=== PATIENT | female | born 1955 | race Caucasian/White ===

== ENCOUNTER → 2016-09-15 | Outpatient (CLI) | payer OTHER ==
[~2016-09-15] MED LIST: ALLE24TA8 PO; ASCO25TA PO; CALC600T57 PO; FISH1000 PO; FLUT1LOT EX; MULT1TAB18 PO; PRED20TA PO; VITA100072 PO; VITA500055 PO
[2016-09-15 12:17] LABS: MEAN CORPUSCULAR HEMOGLOBIN 28.4 pg (27.0-33.0); MEAN CORPUSCULAR HGB CONC 33.3 g/dl (32.0-36.5); MEAN CORPUSCULAR VOLUME 85.4 fl (80.0-96.0); RED CELL DISTRIBUTION WIDTH 14.3 % (11.5-14.5); WHITE BLOOD COUNT 11.2 K/mm3 (4.0-10.0)
[2016-09-15 12:22] LABS: INR 1.01
[2016-09-15 12:30] LABS: ALBUMIN/GLOBULIN RATIO 1.18 (1.00-1.93); ALKALINE PHOSPHATASE 87 U/L (45-117); ALT/SGPT 25 U/L (12-78); ANION GAP 6 MEQ/L (8-16); AST/SGOT 15 U/L (15-37); BILIRUBIN,TOTAL 0.3 MG/DL (0.2-1.0); BLOOD UREA NITROGEN 15 MG/DL (7-18); CALCIUM LEVEL 9.5 MG/DL (8.5-10.1); CARBON DIOXIDE LEVEL 29 MEQ/L (21-32); CHLORIDE LEVEL 103 MEQ/L (98-107); CREATININE FOR GFR 0.82 MG/DL (0.55-1.02); GLOMERULAR FILTRATION RATE > 60.0 (>51); GLUCOSE, FASTING 111 MG/DL (70-105); POTASSIUM SERUM 4.7 MEQ/L (3.5-5.1); SODIUM LEVEL 138 MEQ/L (136-145); TOTAL PROTEIN 7.4 GM/DL (6.4-8.2)
--- NOTE | 2016-09-15 12:38 | REP ---
Clinical: Preoperative assessment. Anesthesia protocol . Comparison: 09/08/2007 . Technique: PA and lateral. Findings: The mediastinum and cardiac silhouette are normal. Airway is patent and midline. The lung greenwood are clear and without acute consolidation, effusion, or pneumothorax. The skeletal structures are intact and normal. Impression: 1. No acute cardiopulmonary process. Signed by Aaron Gloria MD 09/15/2016 12:29 P
--- NOTE | 2016-09-15 22:19 | ECGEPIP ---
Stationary ECG Study [facility] Test Date: 2016-09-15 Pat Name: SHAMIKA LOTT Department: Room: - Gender: F Marine Technician: ADRI : 1955 Requested By: Jolynn Bettencourt Order Number: [id number] Reading MD: Danielle Velásquez Measurements Intervals [place] Rate: 63 P: 32 IL: 183 QRS: 71 QRSD: 94 T: 45 QT: 414 QTc: 425 Interpretive Statements SINUS RHYTHM NO PRIOR Electronically Signed On 09-15-2016 22:19:32 EDT by Danielle Velásquez
== END ==
LOC: M ADMPAT 09:10
PROVIDERS: ATTEND Orthopaedic Surgery
DX: M17.12 Unilateral primary osteoarthritis, left knee (principal)

== ENCOUNTER 2016-09-22 07:30 | Inpatient (IN) | payer OTHER ==
--- NOTE | 2016-09-17 16:54 | HPE ---
DATE OF ADMISSION: 09/22/2016 CHIEF COMPLAINT: Left knee pain. HISTORY OF PRESENT ILLNESS: This a pleasant 61-year-old woman with progressively worsening left knee pain and stiffness. She has failed to improve with conservative treatment. She has elected for surgery for her continued symptoms. She has pain with weightbearing activities and her activities of daily living. X-rays of her knee are notable for advanced osteoarthritis of the left knee joint. She has consented for a left total knee arthroplasty by Dr. Sg Huynh. Medical optimization was performed by Dr. Jones. ALLERGIES: SULFA, CODEINE, and PENICILLIN. CURRENT MEDICATIONS: - fish oil and omega-3 combination 1400 mg and 900 mg respectively once a day - vitamin D3 5000 units IV - calcium 600 mg and vitamin D3 800 mg - multivitamin once a day - Carito-D 24 Hour once a day - vitamin B12 5000 mcg once a week - vitamin C 500 mg daily - fluticasone 50 mcg spray in each nostril twice a day - saline nasal spray PAST MEDICAL HISTORY: Includes: 1. Seasonal allergies. 2. Arthritis of the knees. PAST SURGICAL HISTORY: Includes: 1. Bladder suspension. 2. Right bunionectomy. 3. Right carpal tunnel release. 4. Right knee arthroscopy. 5. Breast reduction. 6. Multiple left hand and wrist surgeries for lacerated tendons when she was 7 years old. 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 She does not smoke. She rarely drinks alcohol. FAMILY HISTORY: Noncontributory. REVIEW OF SYSTEMS: This patient denies chest pain, heart palpitations, cough, wheezing, difficulty breathing, and shortness of breath. She denies abdominal pain, nausea, vomiting, diarrhea, or constipation. She denies recent upper respiratory infection or urinary tract infection symptoms. She does complain of persistent pain in her left knee and pain with weightbearing activities in her left knee. PHYSICAL EXAMINATION: GENERAL: She is a well-nourished, well-developed, in no acute distress, alert female patient. She walks with a moderate limp, favoring her left lower extremity. She is not using assistive devices. VITAL SIGNS: She is 69-1/2 inches tall, weighs 234 pounds with a temperature of 97.3, pulse of 68, blood pressure 122/78, and respirations of 20. NECK: Supple without adenopathy or jugular venous distension. There were no carotid bruits appreciated upon auscultation. LUNGS: Clear to auscultation without rales or wheeze throughout. HEART: Regular rate and rhythm. ABDOMEN: Bowel sounds were present. EXTREMITIES: Examination of the knee revealed intact skin without erythema, edema, or ecchymosis. She had pain and stiffness and decreased range of motion through her knee today. It was neurovascularly intact. LABORATORY DATA: EKG showed sinus rhythm at 63 beats per minute. Chest x-ray showed no acute cardiopulmonary disease processes. Nasal and sinus cultures showed normal raciel. Prothrombin time 13.4, INR 1.01. Glucose 111, BUN 15, creatinine 0.82, sodium 138, potassium 4.7. CBC showed a white count of 11.2, otherwise within normal limits with a sedimentation rate of 12. UA showed 2+ leukocyte esterase, otherwise within normal limits with specific gravity of 1.012. Urine culture showed no growth. IMPRESSION: Symptomatic osteoarthritis of the left knee joint. PLAN: Consented for a left total knee arthroplasty by Dr. Sg Huynh.
--- NOTE | 2016-09-17 21:34 | CR ---
DATE OF CONSULTATION: 09/17/2016 CONSULTATION REPORT FOR: Dr. Sg Huynh REASON FOR CONSULTATION: Total left total knee arthroplasty (TKA). Dear Dr. Huynh, Than you for asking me to see Ms. Heath Thompson in consultation prior to her left total knee arthroplasty (TKC). As you know, Ms. Thompson is a relatively healthy 61-year-old female with a past medical history of hyperlipidemia, vitamin D deficiency, and allergic rhinitis. The patient reports she has been in her usual state of health except for recent vision changing ultimately felt to be related to an optical migraine from her plater hot dip and treated with prednisone 20 mg a day for 10 days which has just resolved with near full resolution of the patient's symptoms. The patient has had this condition previously which did respond to prednisone. The patient denies any fevers or chills, chest pain or shortness of breath. She denies any significant adverse reactions from the prednisone, except enjoyed the increased energy. The patient is [id number]. She does wear hearing aids. She has tubes in her ears which were placed about a year ago and she follows with the ears, nose and throat (ENT). The patient has allergic rhinitis. She believes the warm spell we had in July 2016 flared her allergies which cause headaches and triggered the optical migraine. The patient does have osteoarthritis (OA), degenerative joint disease (DJD). She was an athlete in high school, played four sports and has chronic knee pain. She has been waiting for left TKA for some time, as it is difficult for her to even walk in the mall. She is able to do her own housework with no chest pain, palpitations, syncope or presyncope. The patient otherwise has a negative review of systems. PAST MEDICAL HISTORY: 1. Osteoarthritis (OA), degenerative joint disease (DJD), bilateral knees. 2. Seasonal allergies. 3. (G) 3, para (P) 3. 4. Bladder suspension. 5. Hyperlipidemia. 6. Right carpal tunnel repair. 7. Colonic polyps. 8. Vitamin D deficiency. 9. Bilateral breast reduction. 10. Dilation and curettage and laparoscopic cystectomy by Dr. Linares. 11. Obstructive sleep apnea (KEVON), compliant with continuous positive airway pressure (CPAP). 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 MEDICATIONS: - vitamin D3 5000 international units daily - calcium 600 with vitamin D3 800 one daily - vitamin C 500 daily - fluticasone one spray per nostril twice a day - vitamin B12 5000 mcg daily - fexofenadine with pseudoephedrine daily - fish oil daily - multivitamin daily DRUG ALLERGIES: SULFA and CODEINE, PENICILLIN does cause yeast infections. SOCIAL HISTORY: Adult children. Still works in the school system. FAMILY HISTORY: Father with heart disease and lung problems. Mother with kidney cancer and Alzheimer's. A sibling has diabetes. Another sibling hypertension. A sibling has psoriasis. PHYSICAL EXAMINATION: No acute distress. VITAL SIGNS: Weight 238 with a body mass index (BMI) of 34. Oxygen saturation is 97%, blood pressure 108/60 with a heart rate of 70. HEENT: Head is normocephalic. Neck is supple. She wears hearing aids which are removed. She has tubes bilateral ears. No significant erythema or drainage. No cervical lymphadenopathy, thyromegaly. Oropharynx is benign. No carotid bruits. RESPIRATORY: Clear to auscultation, resonant to percussion. CARDIOVASCULAR SYSTEM: Early soft systolic murmur with no radiation. ABDOMEN: Normoactive bowel sounds, soft, nontender. No hepatosplenomegaly. EXTREMITIES: No cyanosis, clubbing or edema but some early arthritic changes. DERMATOLOGIC: No rashes. NEUROLOGIC: Alert and oriented. Cranial nerves II-XII are intact. LABORATORY DATA: 09/15/2016 UA consistent with contamination, negative urine culture. PT/PTT is normal. Metabolic profile normal. Liver panel normal. CBC significant for white count of 11 but when this was drawn she was on prednisone. Her sedimentation rate is only 12. Nasal culture is negative. Chest x-ray within normal limits. EKG within normal limits. IMPRESSION: Ms. Hetah Thompson is a 61-year-old female with cardiovascular risk factors positive for hyperlipidemia and age, has no signs or symptoms indicative of cardiovascular ischemia and is felt to be at low risk for cardiovascular complications from the proposed surgical intervention which can be further minimized by the followin. Hyperlipidemia. Stop fish oral now, resume after off warfarin. Patient encouraged to resume diet and exercise as soon as she can. 2. Vitamin D deficiency. Hold vitamin D and calcium now until surgery, resume following surgery. 3. Allergic rhinitis. I have approved her taking saline and Flonase perioperatively. She will take the Carito-D until the morning of surgery. 4. Obstructive sleep apnea (KEVON). Bring continuous positive airway pressure (CPAP) to surgery. The patient is compliant. 5. Recent optical migraines. Full near resolution, off prednisone. No further treatment indicated. Will follow up with her plater hot dip. 6. Colonic polyps. Up-to-date with colonoscopy. Thank you very much for this consultation. Please call with questions or concerns. Dr. Briseida Jones
[~2016-09-22] VITALS: Ht 177.8 cm; Wt 104.3 kg
[2016-09-22] MEDS ORDERED: BUPIVACAINE HCL 0.5% 10 ML VIAL As Ordered ONE (07:34)
[2016-09-22] MEDS ORDERED: EPINEPHrine INJ 1 MG/ML 1ML VIAL/AMP As Ordered ONE (07:34)
[2016-09-22] MEDS ORDERED: ROPIvacaine 0.5% 30 ML INJECTION (J2795) As Ordered ONE (07:34)
[2016-09-22] MEDS ORDERED: TRANEXAMIC ACID 100 MG/ML 10ML VIAL As Ordered ONE (07:34)
[2016-09-22] MEDS ORDERED: LR 1,000 ML IV SCH ×4 (10:00→15:00)
[2016-09-22] MEDS ORDERED: ceFAZolin 1GM INJ (J0690) As Ordered ONE (10:20)
[2016-09-22] MEDS ORDERED: COUM1TAB17 PO (10:24)
[2016-09-22] MEDS ORDERED: ACETAMINOPHEN 500 MG TAB PO ONE (10:30)
[2016-09-22] MEDS ORDERED: fentaNYL 100 MCG/2 ML INJECTION (J3010) As Ordered ONE ×3 (10:58→12:55)
[2016-09-22] MEDS ORDERED: MIDAZOLAM INJ 2 MG/2 ML VIAL (J2250) As Ordered ONE ×2 (10:59→11:10)
[2016-09-22] MEDS ORDERED: PROPOFOL 200 MG/20 ML VIAL As Ordered ONE (10:59)
[2016-09-22] MEDS ORDERED: LIDOCAINE 2% INJ 100 MG/5 ML SDV (FOR ANES.) As Ordered ONE (10:59)
[2016-09-22] MEDS ORDERED: ONDANSETRON 4MG/2ML VIAL (J2405) As Ordered ONE ×2 (11:07→14:51)
[2016-09-22] MEDS: fentaNYL 100 MCG/2 ML INJECTION (J3010) IV SCH ×2 (11:58→12:04)
[2016-09-22] MEDS: MIDAZOLAM INJ 2 MG/2 ML VIAL (J2250) IV SCH ×2 (11:58→12:04)
[2016-09-22] MEDS ORDERED: MORPHINE PCA 1MG/ML 100ML CADD As Ordered ONE (14:51)
[2016-09-22] MEDS ORDERED: PATIENT IS CURRENTLY ON AN ON-Q PAIN BUSTER PAIN RELIEF SYSTEM XX SCH (15:00)
[2016-09-22] MEDS ORDERED: NALBUPHINE HCL 10 MG/ML AMP (J2300) IV PRN (15:00)
[2016-09-22] MEDS ORDERED: NALOXONE INJ 0.4 MG/1 ML VIAL (J2310) IV PRN (15:00)
[2016-09-22] MEDS ORDERED: ONDANSETRON 4MG/2ML VIAL (J2405) IV PRN (15:00)
[2016-09-22] MEDS ORDERED: EPIDURAL/PCA KEYS XX PRN (15:00)
[2016-09-22] MEDS ORDERED: HYDROmorphone HCL 1 MG/ML SYRINGE (J1170) IV PRN (15:00)
[2016-09-22] MEDS ORDERED: MORPHINE PCA 1MG/ML 100ML CADD IV PRN (15:00)
[2016-09-22] MEDS ORDERED: diphenhydrAMINE INJ 50MG/ML VIAL (J1200) IV PRN (15:00)
[2016-09-22] MEDS ORDERED: PERCOCET 5MG/325MG TAB PO PRN (15:00)
[2016-09-22] MEDS ORDERED: FLEET ENEMA PR PRN (15:00)
[2016-09-22] MEDS: fentaNYL 100 MCG/2 ML INJECTION (J3010) IV PRN ×4 (15:10→15:25)
[2016-09-22] MEDS ORDERED: METOCLOPRAMIDE INJ 10MG/2ML VIAL (J2765) As Ordered ONE (15:39)
[2016-09-22] MEDS ORDERED: METOCLOPRAMIDE INJ 10MG/2ML VIAL (J2765) IV PRN (15:45)
[2016-09-22 16:15] VITALS: BP 135/73
[2016-09-22 16:45] VITALS: BP 130/60
[2016-09-22] MEDS ORDERED: WARFARIN SOD 5 MG TAB PO SCH (17:00)
--- NOTE | 2016-09-22 17:24 | RO ---
DATE OF PROCEDURE: 09/22/2016 PREOPERATIVE DIAGNOSIS: Left knee degenerative arthritis. POSTOPERATIVE DIAGNOSIS: Left knee degenerative arthritis. PROCEDURE: Left total knee arthroplasty using a size 5 cruciate-retaining femoral component, a size 4 tibial tray with a 12.5 mm rotating platform polyethylene insert and a 35 mm polyethylene button. All components were cemented. The prosthesis was made by [employer]. It was a PFC knee. SURGEON: Dr. Jolynn Huynh MAIL SERVICE COORDINATOR: Mr. Andrea Jane ANESTHESIA: Spinal. COMPLICATIONS: None. SPECIMENS: Joint surface. ESTIMATED BLOOD LOSS: Less than 20 mL. DRAINS: PainBuster. DESCRIPTION OF PROCEDURE: Antibiotics were given intravenously preoperatively and successful spinal anesthetic was induced, Medina catheter was placed, tourniquet placed on the left upper thigh and not inflated. Left lower extremity was then prepped and draped in the usual sterile fashion. Then, after appropriate time out, the leg was elevated and the tourniquet was inflated for 56 minutes. A longitudinal incision was made for a medial parapatellar approach to the knee. Bovie cautery was used to coagulate crossing vessels. A medial parapatellar arthrotomy was then performed. Careful subperiosteal dissection around the proximal and medial portion of the tibia was performed as well as proximal laterally. We everted the patella and then flexed the knee. Anterior cruciate ligament (ACL) was debrided. A drill was placed down the center of the femoral canal. Distal femoral cutting block was applied and set at a 5 degree valgus cut for a left knee, set at 10 mm resection level. A distal femoral cut was then performed. AP sizing jig measured between a 5 and a 6 but was about 5.2, so I pinned it in that position and used a #5 jig. The 3-degree external rotation block holes were placed, then the 4-in-1 block applied, and then the anterior, posterior, chamfer cuts performed. We then exposed the proximal tibia, used the extramedullary alignment jig to be sure we were parallel to the mechanical axis, referenced off the medial tibial condyle and set at 4 mm resection level. Secondary check showed that we were right at 10 at the lateral side. We pinned the block into position and then secondary check with the extramedullary rosy confirmed that we appeared to be perfectly parallel to the mechanical axis with good slope. Proximal tibial osteotomy was then performed. We then used the lamina custodial officer laterally and performed a completion medial meniscectomy and debridement of the posteromedial osteophytes. We then placed the lamina custodial officer medially and performed a completion lateral meniscectomy and debridement of the posterolateral osteophytes. We then used the spacer block, the 10 was a bit too loose, 12.5 fit the best with good symmetry in flexion and extension space. We then exposed the proximal tibia, sized for a #4 tibial tray, which was then pinned into position followed by the reamer and the broach, then the 12.5 polyethylene was placed and the femoral component was placed and brought the knee into extension, then everted the patella and performed a patellar osteotomy, sized for a 35 button. The lug holes were drilled. We then noted that the patellofemoral tracking was anatomic, and there was good stability to varus/valgus stress testing both in flexion and in extension. We then drilled the lug holes for the femur, removed all of the trial components, copiously pulsatile lavage irrigated out the knee joint. My certified physician assistant, Mr. Andrea Jane, mixed the cement on the back table as I prepared the bony surfaces for cementing, again by irrigating thoroughly and drying all the surfaces thoroughly. Mr. Jane was also critical to the success of the procedure by helping to close the wound, helping to bend and extend the knee several times throughout the operation, to assist with appropriate retraction so I could perform the operation smoothly and efficiently, helped to close the wound amongst many other tasks. We then cemented the tibial tray, removed the excess cement, placed the polyethylene, then cemented the femoral component, removed the excess cement, brought the knee into extension, cemented the patellar button, removed the excess cement, held that position in extension until the cement hardened as we copiously pulsatile lavage irrigated out the knee joint again, placed the tranexamic acid in the knee joint. Then, began closing the arthrotomy at the apex with two #1 PDS sutures, then the medial parapatellar area was closed with a single #1 PDS suture, then we used a running #1 double-armed Stratafix to close the capsule, then the tourniquet was released. We irrigated again between layers, closed the deep subdermal tissues with interrupted #2-0 PDS sutures, skin was closed with luana, covered by Adaptic dry sterile bulky dressing. She was then transferred to the recovery room in stable condition. There were no intraoperative complications.
[2016-09-22 17:45] VITALS: BP 150/73
[2016-09-22 18:45] VITALS: BP 145/66
[2016-09-22 19:45] VITALS: BP 156/73
[2016-09-22 20:45] VITALS: BP 155/69
[2016-09-22] MEDS: ONDANSETRON 4MG/2ML VIAL (J2405) IV PRN (21:20)
[2016-09-23 00:45] VITALS: BP 155/70
[2016-09-23] MEDS: ACETAMINOPHEN TAB 650MG DOSE (2X325MG) PO PRN ×4 (01:57→20:26)
[2016-09-23 04:45] VITALS: BP 141/67
[2016-09-23] MEDS: ONDANSETRON 4MG/2ML VIAL (J2405) IV PRN (06:24)
[2016-09-23] MEDS ORDERED: PERCOCET 5MG/325MG TAB PO PRN ×2 (06:45)
[2016-09-23] MEDS ORDERED: ONDANSETRON 4 MG TAB (S0181) PO PRN (06:45)
[2016-09-23] MEDS ORDERED: traMADol 50 MG TAB PO PRN ×2 (07:00)
[2016-09-23 07:23] LABS: MEAN CORPUSCULAR HEMOGLOBIN 29.3 pg (27.0-33.0); MEAN CORPUSCULAR VOLUME 83.7 fl (80.0-96.0); RED CELL DISTRIBUTION WIDTH 14.3 % (11.5-14.5); WHITE BLOOD COUNT 13.1 K/mm3 (4.0-10.0)
[2016-09-23 07:28] LABS: INR 1.15
[2016-09-23] MEDS ORDERED: TAPENTADOL 50 MG TABLET (NUCYNTA) PO PRN (07:30)
[2016-09-23] MEDS ORDERED: EPINEPHrine INJ 1 MG/ML 1ML VIAL/AMP ONE (07:38)
[2016-09-23] MEDS ORDERED: ROPIvacaine 0.5% 30 ML INJECTION (J2795) ONE (07:38)
[2016-09-23] MEDS: MOM 30ML SUSPENSION UDC PO SCH (08:15)
[2016-09-23] MEDS: MIRALAX *UNIT DOSE* 17GM PACKET PO SCH (08:15)
[2016-09-23] MEDS ORDERED: NUCY50TA9 PO (08:50)
[2016-09-23] MEDS: TAPENTADOL 50 MG TABLET (NUCYNTA) PO PRN ×3 (09:23→22:41)
--- NOTE | 2016-09-23 09:30 | REP ---
AP AND LATERAL LEFT KNEE: HISTORY: Knee replacement. COMPARISON: 10/30/2004. The patient is status post left total knee replacement. There is no acute fracture or dislocation. A small amount of subcutaneous air and surgical luana are present in the overlying soft tissue. IMPRESSION: The patient is status post left total knee replacement. There is anatomic alignment. Signed by Ceasar Marcelo MD 09/23/2016 10:02 A
[2016-09-23 10:00] VITALS: BP 166/79
[2016-09-23 12:00] VITALS: BP 148/68
[2016-09-23] MEDS ORDERED: WARFARIN SOD 5 MG TAB PO ONE (17:00)
[2016-09-23 22:00] VITALS: BP 146/71
[2016-09-24] MEDS: ACETAMINOPHEN TAB 650MG DOSE (2X325MG) PO PRN ×3 (02:50→17:12)
[2016-09-24] MEDS: TAPENTADOL 50 MG TABLET (NUCYNTA) PO PRN ×3 (05:49→18:10)
[2016-09-24 06:00] VITALS: BP 151/67
[2016-09-24 07:04] LABS: MEAN CORPUSCULAR HGB CONC 34.6 g/dl (32.0-36.5); MEAN CORPUSCULAR VOLUME 83.6 fl (80.0-96.0); RED CELL DISTRIBUTION WIDTH 14.2 % (11.5-14.5); WHITE BLOOD COUNT 16.3 K/mm3 (4.0-10.0)
[2016-09-24 07:08] LABS: INR 1.57
[2016-09-24] MEDS: MOM 30ML SUSPENSION UDC PO SCH (08:57)
[2016-09-24] MEDS: MIRALAX *UNIT DOSE* 17GM PACKET PO SCH (08:57)
[2016-09-24 14:00] VITALS: BP 162/78
[2016-09-24] MEDS ORDERED: WARFARIN SOD 5 MG TAB PO ONE (17:00)
[2016-09-24 22:00] VITALS: BP 141/67
[2016-09-25] MEDS: TAPENTADOL 50 MG TABLET (NUCYNTA) PO PRN ×2 (06:02→10:14)
[2016-09-25 07:08] LABS: INR 1.75; MEAN CORPUSCULAR HEMOGLOBIN 28.8 pg (27.0-33.0); MEAN CORPUSCULAR HGB CONC 33.9 g/dl (32.0-36.5); MEAN CORPUSCULAR VOLUME 84.8 fl (80.0-96.0); RED CELL DISTRIBUTION WIDTH 14.6 % (11.5-14.5); WHITE BLOOD COUNT 12.9 K/mm3 (4.0-10.0)
[2016-09-25] MEDS: MOM 30ML SUSPENSION UDC PO SCH (09:04)
[2016-09-25] MEDS: MIRALAX *UNIT DOSE* 17GM PACKET PO SCH (09:04)
[2016-09-25 09:18] VITALS: BP 123/61
== END 2016-09-25 11:46 | disposition home health service (06) | DRG 470 ==
LOC: M OR 09:46 → M MS5PR 16:00
PROVIDERS: ADMIT Orthopaedic Surgery; ATTEND Orthopaedic Surgery
PROC: 0SRD0JZ Replacement of Left Knee Joint with Synthetic Substitute, Open Approach (ICD-10-PCS; principal; 2016-09-22 12:10)
DX: M17.12 Unilateral primary osteoarthritis, left knee (principal); Z88.2 Allergy status to sulfonamides; Z88.5 Allergy status to narcotic agent; Z88.0 Allergy status to penicillin; E78.5 Hyperlipidemia, unspecified; E55.9 Vitamin D deficiency, unspecified; G47.33 Obstructive sleep apnea (adult) (pediatric); Z79.899 Other long term (current) drug therapy; J30.9 Allergic rhinitis, unspecified

== ENCOUNTER → 2016-12-10 | Outpatient (CLI) | payer OTHER ==
[~2016-12-10] MED LIST changes: +COUM1TAB17 PO; +NUCY50TA9 PO
--- NOTE | 2016-12-10 09:22 | REPMRS ---
Patient History The patient states she had a clinical breast exam in Patient is postmenopausal. No known family history of cancer. Benign core biopsy of the right breast, November 29, 2015. Reductions of both breasts, 2011. Benign excisional biopsy of the right breast, 2002. Digital Woman Screen Mammo: December 10, 2016 - Exam #: [id number] Bilateral CC and MLO view(s) were taken. Technologist: Jenae Singh, Technologist Prior study comparison: November 14, 2015, right breast digital mammo diagnostic unilateral, performed at [facility]. November 07, 2015, digital woman screen mammo performed at [facility]. FINDINGS: There are scattered fibroglandular densities. There has been no change in the appearance of the mammogram from the prior studies. There is a mild amount of residual fibroglandular tissue which is fairly symmetric. There is no interval development of dominant mass, architectural distortion, or clustered microcalcification suggestive of malignancy. ASSESSMENT: BI-RADS/ACR category 1 mammogram. Negative. Recommendation Routine screening mammogram in 1 year (for women over age 40). This mammogram was interpreted with the aid of an FDA-approved computer-aided dectection system. Electronically Signed By: Andre Flores MD 12/10/16 0922
== END ==
LOC: M WHC 07:53
PROVIDERS: ATTEND Nurse Practitioner Women's Health
DX: Z12.31 Encounter for screening mammogram for malignant neoplasm of breast (principal); Z78.0 Asymptomatic menopausal state

== ENCOUNTER → 2017-06-29 | Outpatient (REF) | payer OTHER ==
[2017-06-29 13:55] LABS: APPEARANCE, URINE CLOUDY (CLEAR); BACTERIA, URINE AUTO 1+ (NEGATIVE); BILIRUBIN, URINE AUTO NEGATIVE (NEGATIVE); BLOOD, URINE BLOOD 3+ (NEGATIVE); COLOR, URINE AMBER (YELLOW); GLUCOSE, URINE (UA) AUTO NEGATIVE (NEGATIVE); KETONE, URINE AUTO NEGATIVE (NEGATIVE); LEUKOCYTE ESTERASE, URINE AUTO 2+ (NEGATIVE); MUCUS, URINE SMALL (NEGATIVE); NITRITE, URINE AUTO POSITIVE (NEGATIVE); PROTEIN, URINE AUTO 2+ mg/dL (NEGATIVE); RBC, URINE AUTO TNTC /HPF (0-3); SQUAMOUS EPITHELIAL CELL UR AU 1 /HPF (0-6); WBC, URINE AUTO TNTC /HPF (0-3)
== END ==
LOC: M LAB REF 13:03
DX: R30.0 Dysuria (principal)
CPT/HCPCS: 81001

== ENCOUNTER → 2018-01-04 | Outpatient (CLI) | payer OTHER | LOC: M WHC 06:49 | DX: Z12.31 Encounter for screening mammogram for malignant neoplasm of breast (principal) | CPT/HCPCS: 77067 ==

== ENCOUNTER 2018-05-01 12:48 | Emergency (ER) | payer OTHER | END 2018-05-01 14:36 | disposition home or self-care (01) | LOC: M ED 12:48 | DX: S82.64XA Nondisplaced fracture of lateral malleolus of right fibula, initial encounter for closed fracture (principal); S92.001A Unspecified fracture of right calcaneus, initial encounter for closed fracture; X50.1XXA Overexertion from prolonged static or awkward postures, initial encounter; Y92.410 Unspecified street and highway as the place of occurrence of the external cause; G47.33 Obstructive sleep apnea (adult) (pediatric); N32.9 Bladder disorder, unspecified; Z88.5 Allergy status to narcotic agent; Z88.0 Allergy status to penicillin; Z88.2 Allergy status to sulfonamides; Z79.899 Other long term (current) drug therapy | CPT/HCPCS: 73610 ==

== ENCOUNTER → 2018-07-08 | Outpatient (REF) | payer OTHER ==
[~2018-07-08] MED LIST changes: +NUCY50TA19 PO; -NUCY50TA9 PO; +PERC5TAB12 PO
[2018-07-08 11:02] LABS: INFLUENZA A AMPLIFICATION NEGATIVE (NEGATIVE); INFLUENZA B AMPLIFICATION NEGATIVE (NEGATIVE)
== END ==
LOC: M LAB REF 10:10
PROVIDERS: ATTEND Physician Assistant Medical
DX: J11.1 Influenza due to unidentified influenza virus with other respiratory manifestations (principal)

== ENCOUNTER → 2019-02-17 | Outpatient (REF) | payer OTHER ==
[~2019-02-17] MED LIST changes: +ALLE24TA7 PO; -ALLE24TA8 PO; -ASCO25TA PO; +VITA100018 PO; -VITA100072 PO; +VITA1TAB23 PO
[2019-02-17 17:01] LABS: APPEARANCE, URINE MANUAL CLOUDY (CLEAR); COLOR, URINE MANUAL ORANGE (YELLOW)
[2019-02-17 17:02] LABS: BILIRUBIN, URINE MANUAL OBSCURED (NEGATIVE); BLOOD URINE MANUAL POSITIVE (NEGATIVE); GLUCOSE, URINE (UA) MANUAL NEGATIVE (NEGATIVE); KETONE, URINE MANUAL NEGATIVE (NEGATIVE); LEUKOCYTE ESTERASE, URINE MAN OBSCURED (NEGATIVE); NITRITE, URINE MANUAL OBSCURED (NEGATIVE); PROTEIN, URINE MANUAL 3+ mg/dL (NEGATIVE); SPECIFIC GRAVITY,URINE MANUAL 1.025 (1.002-1.035); UROBILINOGEN, URINE MANUAL OBSCURED mg/dl (NORMAL)
[2019-02-17 17:03] LABS: RBC, URINE TNTC /hpf (0-3); SQUAMOUS EPITHELIAL CELL URINE SMALL AMOUNT /hpf (SMALL AMT); WBC, URINE TNTC /hpf (0-3)
[2019-02-17 17:06] LABS: BACTERIA, URINE SMALL AMOUNT; HYALINE CAST, URINE NONE SEEN /lpf (0-1); RENAL EPITHELIAL CELLS, URINE SMALL AMOUNT /hpf; TRANSITIONAL EPI CELLS, URINE SMALL AMOUNT /hpf
== END ==
LOC: M LAB REF 16:17
PROVIDERS: ATTEND Nurse Practitioner Family
DX: R30.0 Dysuria (principal)

== ENCOUNTER → 2019-03-09 | Outpatient (CLI) | payer OTHER ==
--- NOTE | 2019-03-09 09:37 | REPMRS ---
Patient History The patient states she had a clinical breast exam in 10/2018. No known family history of cancer. Benign core biopsy of the right breast, November 29, 2015. Reductions of both breasts, 2011. Benign excisional biopsy of the right breast, 2002. 3D TOMOSYNTHESIS WAS PERFORMED. [facility] for [facility] cancer is 6.4%. Digital Woman Screen Mammo: March 09, 2019 - Exam #: [id number] Bilateral CC and MLO view(s) were taken. Technologist: Rosalva Barnes Technologist Prior study comparison: January 04, 2018, bilateral digital woman screen mammo performed at [facility]. December 10, 2016, digital woman screen mammo performed at [facility]. FINDINGS: The breast tissue is heterogeneously dense. This may lower the sensitivity of mammography. There has been no change in the appearance of the mammogram from the prior studies. There is a moderate amount of residual fibroglandular tissue which is fairly symmetric. There is no interval development of dominant mass, areas of architectural distortion, or clustered microcalcification typical of malignancy. Assessment: BI-RADS/ACR category 1 mammogram. Negative Mammogram. Recommendation Routine screening mammogram in 1 year (for women over age 40). This mammogram was interpreted with the aid of an FDA-approved computer-aided dectection system. Electronically Signed By: Andre Flores MD 03/09/19 0936
== END ==
LOC: M WHC 08:14
PROVIDERS: ATTEND Nurse Practitioner Women's Health
DX: Z12.31 Encounter for screening mammogram for malignant neoplasm of breast (principal)

== ENCOUNTER 2019-05-16 10:00 | Day surgery (SDC) | payer OTHER ==
[~2019-05-16] VITALS: Ht 177.8 cm; Wt 110.6 kg
[~2019-05-16 10:00] MED LIST changes: +BIOT1TAB PO; +CALC1TAB26 PO; +CHOL50002 PO; +MULTCAP PO; +NS 1,000 ML IV ONE
[2019-05-16] MEDS ORDERED: LIDOCAINE 2% INJ 100 MG/5 ML SDV (FOR ANES.) As Ordered ONE (11:09)
[2019-05-16] MEDS ORDERED: PROPOFOL 500 MG/50 ML VIAL As Ordered ONE ×2 (11:09→11:56)
[2019-05-16 12:20] VITALS: BP 130/72
--- NOTE | 2019-05-16 12:45 | ROOR ---
Patient Name: Heath Thompson Procedure Date: 05/16/2019 11:04 AM Date of : 1955 Age: 63 Room: [facility] Gender: Female Note Status: Finalized Procedure: Colonoscopy Indications: High risk colon cancer surveillance: Personal history of colonic polyps, Last colonoscopy: 2010 Providers: Alexander Sierra MD Referring MD: Briseida COON MD Requesting Provider: Medicines: Monitored Anesthesia Care Complications: No immediate complications. Procedure: Pre-Anesthesia Assessment: - Prior to the procedure, a History and Physical was performed, and patient medications and allergies were reviewed. The patient is competent. The risks and benefits of the procedure and the sedation options and risks were discussed with the patient. All questions were answered and informed consent was obtained. Patient identification and proposed procedure were verified by the physician, the nurse and the anesthesiologist in the endoscopy suite. Mental Status Examination: alert and oriented. Airway Examination: normal oropharyngeal airway and neck mobility. CV Examination: regular rate and rhythm. Prophylactic Antibiotics: The patient does not require prophylactic antibiotics. Prior Anticoagulants: The patient has taken no previous anticoagulant or antiplatelet agents. ASA Grade Assessment: III - A patient with severe systemic disease. After reviewing the risks and benefits, the patient was deemed in satisfactory condition to undergo the procedure. The anesthesia plan was to use monitored anesthesia care (MAC). Immediately prior to administration of medications, the patient was re-assessed for adequacy to receive sedatives. The heart rate, respiratory rate, oxygen saturations, blood pressure, adequacy of pulmonary ventilation, and response to care were monitored throughout the procedure. The physical status of the patient was re-assessed after the procedure. The was introduced through the anus and advanced to the cecum, identified by appendiceal orifice and ileocecal valve. The colonoscopy was somewhat difficult due to a redundant colon. Successful completion of the procedure was aided by applying abdominal pressure. The patient tolerated the procedure well. The quality of the bowel preparation was good. Findings: The perianal and digital rectal examinations were normal. The transverse colon was significantly tortuous. A 4 mm polyp was found in the splenic flexure. The polyp was sessile. The polyp was removed with a cold snare. Resection and retrieval were complete. Estimated blood loss was minimal. Impression: - Tortuous colon. - One 4 mm polyp at the splenic flexure, removed with a cold snare. Resected and retrieved. Recommendation: - Discharge patient to home. - Resume regular diet. - Continue present medications. - Await pathology results. - Repeat colonoscopy in 5 years for surveillance. Alexander Sierra MD Alexander Sierra MD 05/16/2019 12:45:06 PM Electronically signed by Alexander Sierra MD Number of Addenda: 0 Note Initiated On: 05/16/2019 11:04 AM Estimated Blood Loss: Estimated blood loss was minimal.
== END 2019-05-16 13:00 | disposition home or self-care (01) ==
LOC: M OPP 10:00
PROVIDERS: ATTEND Surgery
DX: Z12.11 Encounter for screening for malignant neoplasm of colon (principal); Z86.010 Personal history of colon polyps; D12.3 Benign neoplasm of transverse colon; Q43.8 Other specified congenital malformations of intestine; Z88.0 Allergy status to penicillin; Z88.2 Allergy status to sulfonamides; Z88.5 Allergy status to narcotic agent

== ENCOUNTER → 2020-03-02 | Outpatient (REF) | payer OTHER ==
[~2020-03-02] MED LIST changes: -NS 1,000 ML IV ONE; -VITA1TAB23 PO; +VITA250T20 PO
[2020-03-02 13:10] LABS: APPEARANCE, URINE CLOUDY (CLEAR); BACTERIA, URINE AUTO NEGATIVE (NEGATIVE); BILIRUBIN, URINE AUTO NEGATIVE (NEGATIVE); BLOOD, URINE BLOOD 3+ (NEGATIVE); COLOR, URINE AMBER (YELLOW); GLUCOSE, URINE (UA) AUTO NEGATIVE (NEGATIVE); KETONE, URINE AUTO NEGATIVE (NEGATIVE); LEUKOCYTE ESTERASE, URINE AUTO TRACE (NEGATIVE); MUCUS, URINE SMALL (NEGATIVE); NITRITE, URINE AUTO POSITIVE (NEGATIVE); PROTEIN, URINE AUTO 1+ mg/dL (NEGATIVE); RBC, URINE AUTO TNTC /HPF (0-3); SPECIFIC GRAVITY URINE AUTO 1.016 (1.002-1.035); SQUAMOUS EPITHELIAL CELL UR AU 9 /HPF (0-6); WBC, URINE AUTO TNTC /HPF (0-3)
== END ==
LOC: M LAB 12:35
PROVIDERS: ATTEND Physician Assistant Medical
DX: N39.0 Urinary tract infection, site not specified (principal)

== ENCOUNTER → 2020-03-12 | Outpatient (CLI) | payer OTHER ==
--- NOTE | 2020-03-12 12:34 | REPMRS ---
Patient History The patient states she had a clinical breast exam in August 2019. No known family history of cancer. Benign core biopsy of the right breast, November 29, 2015. Reductions of both breasts, 2011. Benign excisional biopsy of the right breast, 2002. Digital Woman Screen Mammo: March 12, 2020 - Exam #: [id number] Bilateral CC and MLO view(s) were taken. Technologist: Desiree Hahn Technologist Prior study comparison: March 09, 2019, bilateral digital woman screen mammo performed at [facility]. January 04, 2018, bilateral digital woman screen mammo performed at [facility]. December 10, 2016, digital woman screen mammo performed at [facility]. FINDINGS: There are scattered fibroglandular densities. The Volpara volumetric breast density category is:B. There is a needle biopsy marker clip in the right breast. There has been no change in the appearance of the mammogram from the prior studies. There is a mild amount of scattered fibroglandular density which is fairly symmetric. There is no interval development of dominant mass, architectural distortion, or grouped microcalcification suggestive of malignancy. 3-D tomosynthesis shows no additional findings. Assessment: BI-RADS/ACR category 2 mammogram. Benign Findings. Recommendation Routine screening mammogram of both breasts in 1 year (for women over age 40). This patient's Lifetime Breast Cancer Risk is estimated at 6.1 %. This mammogram was interpreted with the aid of an FDA-approved computer-aided dectection system. Electronically Signed By: Mikel Leonardo MD 03/12/20 3114
== END ==
LOC: M WHC 08:24
PROVIDERS: ATTEND Obstetrics & Gynecology
DX: Z12.31 Encounter for screening mammogram for malignant neoplasm of breast (principal); Z86.018 Personal history of other benign neoplasm

== ENCOUNTER → 2021-02-26 | Outpatient (CLI) | payer OTHER ==
--- NOTE | 2021-02-26 08:43 | REPMRS ---
Patient History The patient states she had a clinical breast exam in December 2020. No known family history of cancer. Benign core biopsy of the right breast, November 29, 2015. Reductions of both breasts, 2011. Benign excisional biopsy of the right breast, 2002. covid vaccines 08/2020 left arm. 08/2020 left arm. 5-10 lb unintentional weight gain. Patient states no breast complaints today. Patient has signed MRS History Sheet. Digital Woman Screen Mammo: February 26, 2021 - Exam #: [id number] Bilateral CC and MLO view(s) were taken. Technologist: RT Patito Prior study comparison: March 12, 2020, bilateral digital woman screen mammo performed at [facility]. March 09, 2019, bilateral digital woman screen mammo performed at [facility]. January 04, 2018, bilateral digital woman screen mammo performed at [facility]. FINDINGS: There are scattered fibroglandular densities. The Volpara volumetric breast density category is:B. There is a needle biopsy marker clip noted in the right breast. There is a stable asymmetric density in the superomedial quadrant of the right breast unchanged. There has been no change in the appearance of the mammogram from the prior studies. There is a mild amount of scattered fibroglandular density which is fairly symmetric. There is no interval development of dominant mass, architectural distortion, or grouped microcalcification suggestive of malignancy. 3-D tomosynthesis shows no additional findings. Assessment: BI-RADS/ACR category 2 mammogram. Benign Findings. Recommendation Routine screening mammogram of both breasts in 1 year (for women over age 40). This patient's [facility] Lifetime Breast Cancer Risk is estimated at 5.9 %. This mammogram was interpreted with the aid of an FDA-approved computer-aided dectection system. Electronically Signed By: Mikel Leonardo MD 02/26/21 0843
== END ==
LOC: M WHC 07:18
PROVIDERS: ATTEND Obstetrics & Gynecology
DX: Z12.31 Encounter for screening mammogram for malignant neoplasm of breast (principal)

== ENCOUNTER → 2022-05-07 | Outpatient (CLI) | payer OTHER | LOC: M WHC 08:13 | PROVIDERS: ATTEND Nurse Practitioner Family | DX: Z12.31 Encounter for screening mammogram for malignant neoplasm of breast (principal) ==

== ENCOUNTER → 2022-05-07 | Outpatient (REF) | payer OTHER | LOC: M PLALAB 09:06 | PROVIDERS: ATTEND Nurse Practitioner Family | DX: Z12.4 Encounter for screening for malignant neoplasm of cervix (principal) | CPT/HCPCS: 87624; G0123 ==

== ENCOUNTER → 2022-07-24 | Outpatient (CLI) | payer MEDICARE, OTHER ==
[2022-07-24 11:45] LABS: HEMATOCRIT 44.4 % (36.0-47.0); MEAN CORPUSCULAR HEMOGLOBIN 29.1 pg (27.0-33.0); MEAN CORPUSCULAR HGB CONC 33.8 g/dl (32.0-36.5); MEAN CORPUSCULAR VOLUME 86.2 fl (80.0-96.0); PLATELET COUNT, AUTOMATED 210 10^3/uL (150-450); RED BLOOD COUNT 5.15 10^6/uL (4.00-5.40); WHITE BLOOD COUNT 7.4 10^3/uL (4.0-10.0)
[2022-07-24 11:58] LABS: INR 0.97; PROTHROMBIN TIME 13.1 SECONDS (12.5-14.5)
[2022-07-24 12:02] LABS: ALBUMIN 4.1 G/DL (3.2-5.2); ALKALINE PHOSPHATASE 87 U/L (46-116); ALT/SGPT 27 U/L (7.0-40); AST/SGOT 24 U/L (<34); BILIRUBIN,TOTAL 0.5 MG/DL (0.3-1.2); BLOOD UREA NITROGEN 14 MG/DL (9-23); CALCIUM LEVEL 9.2 MG/DL (8.3-10.6); CARBON DIOXIDE LEVEL 28 MMOL/L (20-31); CHLORIDE LEVEL 105 MMOL/L (98-107); CREATININE FOR GFR 0.84 MG/DL (0.55-1.30); GLOMERULAR FILTRATION RATE > 60.0 (>45); GLUCOSE, FASTING 106 MG/DL (74-106); POTASSIUM SERUM 4.3 MMOL/L (3.5-5.1); SODIUM LEVEL 139 MMOL/L (136-145); TOTAL PROTEIN 7.4 G/DL (5.7-8.2)
[2022-07-24 12:09] LABS: ERYTHROCYTE SEDIMENTATION RATE 12 mm/hr (0-30)
== END ==
LOC: M RAD 10:40
PROVIDERS: ATTEND Orthopaedic Surgery
DX: M17.11 Unilateral primary osteoarthritis, right knee (principal)

== ENCOUNTER → 2022-08-12 | Outpatient (REF) | payer OTHER, MEDICARE | LOC: M LAB REF 16:25 | PROVIDERS: ATTEND Internal Medicine | DX: L65.9 Nonscarring hair loss, unspecified (principal) ==

== ENCOUNTER → 2023-05-10 | Outpatient (CLI) | payer MEDICARE, OTHER | LOC: M WHC 11:00 | PROVIDERS: ATTEND Internal Medicine | DX: Z13.820 Encounter for screening for osteoporosis (principal); Z78.0 Asymptomatic menopausal state ==

== ENCOUNTER → 2023-05-10 | Outpatient (CLI) | payer MEDICARE, OTHER | LOC: M WHC 09:29 | PROVIDERS: ATTEND Nurse Practitioner Family | DX: Z12.31 Encounter for screening mammogram for malignant neoplasm of breast (principal) ==

== ENCOUNTER → 2023-05-10 | Outpatient (REF) | payer MEDICARE, OTHER | LOC: M SFHCWAGY 13:18 | PROVIDERS: ATTEND Nurse Practitioner Family | DX: Z12.4 Encounter for screening for malignant neoplasm of cervix (principal) | CPT/HCPCS: 87624; G0123 ==

== ENCOUNTER → 2023-05-26 | Outpatient (CLI) | payer MEDICARE, OTHER | LOC: M PLAIMG 10:59 | PROVIDERS: ATTEND Orthopaedic Surgery | DX: M47.896 Other spondylosis, lumbar region (principal); M48.061 Spinal stenosis, lumbar region without neurogenic claudication; M51.27 Other intervertebral disc displacement, lumbosacral region; M51.26 Other intervertebral disc displacement, lumbar region ==

== ENCOUNTER → 2023-06-25 | Outpatient (CLI) | payer MEDICARE, OTHER | LOC: M RAD 15:09 | PROVIDERS: ATTEND Internal Medicine | DX: R91.1 Solitary pulmonary nodule (principal); Z80.1 Family history of malignant neoplasm of trachea, bronchus and lung ==

== ENCOUNTER → 2023-08-20 | Outpatient (REF) | payer MEDICARE, OTHER ==
[2023-08-20 14:24] LABS: APPEARANCE, URINE CLOUDY (CLEAR); BACTERIA, URINE AUTO 3+ (NEGATIVE); BILIRUBIN, URINE AUTO NEGATIVE (NEGATIVE); BLOOD, URINE BLOOD 2+ (NEGATIVE); CALCIUM OXALATE CRYSTALS SMALL; COLOR, URINE YELLOW (YELLOW); GLUCOSE, URINE (UA) AUTO NEGATIVE (NEGATIVE); KETONE, URINE AUTO NEGATIVE (NEGATIVE); LEUKOCYTE ESTERASE, URINE AUTO 3+ (NEGATIVE); MUCUS, URINE SMALL (NEGATIVE); NITRITE, URINE AUTO POSITIVE (NEGATIVE); PROTEIN, URINE AUTO NEGATIVE (NEGATIVE); RBC, URINE AUTO 50 /HPF (0-3); SQUAMOUS EPITHELIAL CELL UR AU 8 /HPF (0-6); UROBILINOGEN, URINE AUTO 0.2 mg/dL (0.0-2.0); WBC, URINE AUTO TNTC /HPF (0-3)
== END ==
LOC: M LAB REF 12:25
PROVIDERS: ATTEND Physician Assistant Medical
DX: N39.0 Urinary tract infection, site not specified (principal); B96.20 Unspecified Escherichia coli [E. coli] as the cause of diseases classified elsewhere

== ENCOUNTER → 2023-12-17 | Outpatient (CLI) | payer MEDICARE, OTHER | LOC: M PLAIMG 08:52 | PROVIDERS: ATTEND Nurse Practitioner Adult Health | DX: R91.8 Other nonspecific abnormal finding of lung field (principal) ==

== ENCOUNTER → 2024-01-08 | Outpatient (REF) | payer MEDICARE, OTHER ==
[2024-01-08 19:54] LABS: APPEARANCE, URINE MANUAL TURBID (CLEAR); COLOR, URINE MANUAL BROWN (YELLOW)
[2024-01-08 19:55] LABS: BILIRUBIN, URINE MANUAL NEGATIVE (NEGATIVE); GLUCOSE, URINE (UA) MANUAL NEGATIVE (NEGATIVE); KETONE, URINE MANUAL NEGATIVE (NEGATIVE); NITRITE, URINE MANUAL POSITIVE (NEGATIVE); PH,URINE MAN 5.5 UNITS (5.0 - 7.0); PROTEIN, URINE MANUAL 3+ mg/dL (NEGATIVE); UROBILINOGEN, URINE MANUAL NORMAL (NORMAL)
[2024-01-08 19:56] LABS: BLOOD URINE MANUAL POSITIVE (NEGATIVE); LEUKOCYTE ESTERASE, URINE MAN POSITIVE (NEGATIVE)
[2024-01-08 20:08] LABS: RBC, URINE TNTC /hpf (0-3); SQUAMOUS EPITHELIAL CELL URINE SMALL AMOUNT /hpf (SMALL AMT); WBC, URINE TNTC /hpf (0-3)
[2024-01-08 20:09] LABS: BACTERIA, URINE MOD AMOUNT; HYALINE CAST, URINE NONE SEEN /lpf (0-1)
== END ==
LOC: M LAB REF 19:24
PROVIDERS: ATTEND Physician Assistant Medical
DX: N39.0 Urinary tract infection, site not specified (principal)

== ENCOUNTER → 2024-03-13 | Outpatient (REF) | payer MEDICARE, OTHER ==
[2024-03-15 06:12] LABS: PROTEIN, TOTAL SO 7.2 g/dL (6.1-8.1)
== END ==
LOC: M LAB REF 13:08
PROVIDERS: ATTEND Internal Medicine
DX: L65.9 Nonscarring hair loss, unspecified (principal); D48.5 Neoplasm of uncertain behavior of skin; J06.9 Acute upper respiratory infection, unspecified

== ENCOUNTER → 2024-03-23 | Outpatient (CLI) | payer MEDICARE, OTHER | LOC: M PLAIMG 10:20 | PROVIDERS: ATTEND Internal Medicine | DX: R01.1 Cardiac murmur, unspecified (principal); I08.3 Combined rheumatic disorders of mitral, aortic and tricuspid valves ==

== ENCOUNTER → 2024-05-05 | Outpatient (REF) | payer MEDICARE, OTHER ==
[2024-05-05 18:46] LABS: C REACTIVE PROTEIN QUANTITATIV 1.1 MG/DL (<1.0)
[2024-05-05 18:48] LABS: RHEUMATOID FACTOR QUANT 6.2 IU/ML (<14)
[2024-05-08 14:13] LABS: ANA SCREEN, IFA NEGATIVE (NEGATIVE)
[2024-05-09 01:11] LABS: CYCLIC CITRULLINATED PEPTIDE < 16 UNITS (<20)
== END ==
LOC: M LAB REF 16:40
PROVIDERS: ATTEND Internal Medicine
DX: H20.9 Unspecified iridocyclitis (principal)

== ENCOUNTER 2024-06-26 09:23 | Day surgery (SDC) | payer MEDICARE, OTHER ==
[~2024-06-26] VITALS: Ht 177.8 cm; Wt 112.5 kg
[~2024-06-26 09:23] MED LIST changes: +CINN500C12 PO; +COLL1CAP PO; +THERTAB52 PO; +VITA100093 PO; +ZINC30CA2 PO
[2024-06-26] MEDS ORDERED: propofoL 200 MG/20 ML VIAL As Ordered ONE (12:04)
[2024-06-26 12:46] VITALS: BP 118/61; O2SAT 95
== END 2024-06-26 12:47 | disposition home or self-care (01) ==
LOC: M OPP 09:23
PROVIDERS: ATTEND Surgery
DX: M19.90 Unspecified osteoarthritis, unspecified site (principal); Z86.0100 Personal history of colon polyps, unspecified; G43.909 Migraine, unspecified, not intractable, without status migrainosus; G47.33 Obstructive sleep apnea (adult) (pediatric); Z99.89 Dependence on other enabling machines and devices; Z88.0 Allergy status to penicillin; Z88.2 Allergy status to sulfonamides; Z88.5 Allergy status to narcotic agent; Z79.899 Other long term (current) drug therapy

== ENCOUNTER → 2024-07-10 | Outpatient (CLI) | payer MEDICARE, OTHER | LOC: M WHC 10:57 | PROVIDERS: ATTEND Nurse Practitioner Family | DX: Z12.31 Encounter for screening mammogram for malignant neoplasm of breast (principal); R92.323 Mammographic fibroglandular density, bilateral breasts ==

== ENCOUNTER → 2024-08-25 | Outpatient (REF) | payer MEDICARE, OTHER ==
[2024-08-25 17:21] LABS: APPEARANCE, URINE CLOUDY (CLEAR); BACTERIA, URINE AUTO 1+ (NEGATIVE); BILIRUBIN, URINE AUTO NEGATIVE (NEGATIVE); BLOOD, URINE BLOOD NEGATIVE (NEGATIVE); COLOR, URINE YELLOW (YELLOW); GLUCOSE, URINE (UA) AUTO NEGATIVE (NEGATIVE); KETONE, URINE AUTO NEGATIVE (NEGATIVE); LEUKOCYTE ESTERASE, URINE AUTO 3+ (NEGATIVE); MUCUS, URINE SMALL (NEGATIVE); NITRITE, URINE AUTO NEGATIVE (NEGATIVE); PROTEIN, URINE AUTO 1+ mg/dL (NEGATIVE); RBC, URINE AUTO 15 /HPF (0-3); SPECIFIC GRAVITY URINE AUTO 1.017 (1.002-1.035); SQUAMOUS EPITHELIAL CELL UR AU 9 /HPF (0-6); UROBILINOGEN, URINE AUTO 0.2 mg/dL (0.0-2.0); WBC, URINE AUTO 145 /HPF (0-3)
== END ==
LOC: M LAB REF 16:21
PROVIDERS: ATTEND Physician Assistant Medical
DX: N39.0 Urinary tract infection, site not specified (principal)

== ENCOUNTER → 2025-01-11 | Outpatient (CLI) | payer MEDICARE, OTHER | LOC: M PLAIMG 06:48 | PROVIDERS: ATTEND Nurse Practitioner Adult Health | DX: J84.10 Pulmonary fibrosis, unspecified (principal); I70.0 Atherosclerosis of aorta ==